=== PATIENT | female | born 1995 | race Caucasian/White ===

== ENCOUNTER 2016-03-27 20:26 | Emergency (ER) | payer OTHER, MEDICAID ==
[2016-03-27 20:57] VITALS: TEMP 98.8; BMI 21.7
[2016-03-27] MEDS ORDERED: NS 1,000 ML IV ONE (21:12)
--- NOTE | 2016-03-27 21:16 | EDPRACDOC ---
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 SHE HAD BEEN HAVING SOME BROWNISH D/C, BUT SHE'S HAD BRIGHT RED BLOOD FOR THE PAST 2 DAYS. PT ALSO HAS LOWER ABD PAIN. Description: Reports: Spontaneous Location: Reports: Internal Vagina Relevant History: Reports: Currently : 3 Para: 1 Total Number of Abortions: 1 (D&C 12/27) Control Method: Reports: None Blood Type: A+ Pain Severity: Mild Vaginal Bleeding Description: Reports: Bright Red ED Past Medical History - Patient Medical History GI/ History: Reports: Urinary Tract Infection, Gastroesophageal Reflux Psychological History: Reports: Anxiety. Denies: Depression Systemic History: Surgical History: Reports: Other (D&C). Denies: Hysterectomy - Family Medical History Reports: Hypertension (PATERNAL FAMILY). Denies: Diabetes, Cancer, Stroke, Cardiac Disorders - Social Medical History Smoking Status: Never smoker Social History: Denies: Amphetamine Use, Barbiturate Use, Benzodiazipine Use, Cocaine Use, Marijuana Use ETOH: None Substance Abuse: None Lives With: Spouse Lives In: Home EDM Review of Systems - Review of Systems ROS Negative Except as Marked: Yes All systems reviewed and were negative except as marked Gastrointestinal: Pain Genitourinary: Vaginal Bleeding - Physical Exam Constitutional: Alert (Awake), No apparent distress Oriented to: Time, Person, Place Last recorded Vital Signs: Last Vital Signs Temp 98.8 F 03/27/16 20:53 Pulse 87 03/27/16 20:53 Resp 18 03/27/16 20:53 BP 125/87 03/27/16 20:53 Pulse Ox 99 03/27/16 20:53 Oxygen Pulse Oxygen Saturation 99 O2 Device Room Air Oxygen Flow Rate Fraction of Inspired Oxygen ( FIO2) - HEENT Head: Normal ( normocephalic) Eye Exam: Normal (PERRL, EOMI, Sclera white) Oropharynx: Normal (Pharynx:Moist without exudate,Gums-no swelling) ENT EAC: Normal TMJ: Normal Nose: No Symptoms Reported (septum midline) Neck: Normal (FROM, trachea at midline) - Respiratory/Cardiovascular Respiratory: Normal - CTA (BBS clear to auscultation without adventitious sounds ) Cardiovascular: Normal (RRR without murmur, gallop or rub) - GI Auscultation: Normal (NABS) Palpation: Normal (Soft,No rebound or guarding, non distended) Tenderness: Mild, Suprapubic Perry's Sign: Negative - Bladder: Normal External: Normal Vagina: Blood Cervix: Blood Uterus: Normal size Adnexa: Bilateral: Normal - Musculoskeletal Back: Normal (Non-Tender) Extremities: Normal (Normal tone, Pulses 2+ No cyanosis or edema, FROM) - Integumentary Skin: Normal, Warm, Dry Lymphatics: Normal (no adenopathy) - Neurologic Memory Impaired: Normal Motor Function: Normal (Normal tone, Pulses 2+ No cyanosis or edema, FROM) Cranial Nerve: Normal (CN II-X11 intact sensation, strength 5/5) Cerebellar: Normal Mood Description: Normal Thought: Coherent Perception: Normal - Results 03/27/16 21:34 03/27/16 21:34 Decision Time to Discharge: 22:45 - Departure Yes I personally saw and evaluated the patient. Disposition: Home Condition: Fair Final Diagnosis: Spontaneous Instructions: Miscarriage (ED) Education/Counseling Given To: Patient, Family Member Education/Counseling Given Regarding: Diagnosis, Treatment, Follow Up Referrals: Oriana Rangel NP [Primary Care Provider] - One Week Gabi Sanchez DO [Staff Physician] - One Week
[2016-03-27 22:02] LABS: BLOOD UREA NITROGEN 18 MG/DL (7-17); CALCIUM 9.6 MG/DL (8.4-10.2); CALCULATED OSMOLALITY 273 MOs/Kg (270-290); CHLORIDE 105 mEq/L (98-107); GLUCOSE 96 MG/DL (70-99); SODIUM LEVEL 141 mEq/L (137-146); TOTAL PROTEIN 7.7 G/DL (6.3-8.2)
[2016-03-27 22:06] LABS: AUTOMATED BASOPHIL 0.5 % (0-2); AUTOMATED EOSINOPHIL 1.3 % (0-5); AUTOMATED LYMPH 55.4 % (17-44); AUTOMATED MONOCYTE 6.8 % (3-10); MPV 8.8 fL (7.4-10.4)
[2016-03-27 22:18] LABS: QUANTITATIVE SERUM HCG 125.1 mIU/mL (<5)
[2016-03-27 22:41] LABS: LEUKOCYTES/URINE NEG (NEGATIVE); NITRITE/URINE NEG (NEGATIVE); RBC/URINE 0-2 (0-5); URINE OCCULT BLOOD NEG (NEG/TRACE); WBC/URINE 0-2 (0-5)
[2016-03-27 23:07] VITALS: BP 120/80; PULSE 82
[2016-03-30 05:38] LABS: CHLAMY BY NUCLEIC ACID AMP Negative (Negative)
[2016-03-30 07:16] LABS: GC BY NUCLEIC ACID AMP Negative (Negative)
== END 2016-03-27 23:09 | disposition home or self-care (01) ==
LOC: ED 20:26
DX: O03.9 Complete or unspecified spontaneous abortion without complication (principal)
CPT/HCPCS: 36415; 80053; 81001; 84702; 85025; 87210; 87220; 87491; 87591; 96360; 99284

== ENCOUNTER 2016-04-07 21:00 | Emergency (ER) | payer OTHER, MEDICAID ==
[2016-04-07 21:11] VITALS: TEMP 98.6; BMI 33.3
--- NOTE | 2016-04-07 22:24 | EDPRACDOC ---
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 PT STATES THAT SHE WAS SEEN HERE 11 DAYS AGO AND WAS TOLD THAT SHE HAD MISCARRIED THE BABY. PT STATES THAT SHE FOLLOWED UP WITH HER HOOP BENDING MACHINE OPERATOR 2 DAYS AGO AND HAD HER BLOOD WORK REPEATED AND IN FACT, HER LEVELS WERE ELEVATED. PT STATES THAT SHE CONTINUES TO BLEED. DENIES PAIN/FEVER. PT STATES THAT SHE GOT THE CALL BACK ABOUT HER BLOOD WORK TODAY AND HER CREDIT RELATIONSHIP MANAGER TOLD HER TO COME TO THE ED TO HAVE AN U/S BECAUSE SHE HAS A ROOT CANAL SCHEDULED TOMORROW AND SHE DOESN'T WANT TO DO THIS IF SHE IS INDEED . Description: Reports: Spontaneous Location: Reports: Internal Vagina Relevant History: Reports: Currently Control Method: Reports: None Pain Severity: None Vaginal Bleeding Description: Reports: Bright Red Associated Signs & Symptoms: Reports: Vaginal Bleeding ED Past Medical History - History Reviewed Yes Nurses notes reviewed and agree except as marked - Patient Medical History GI/ History: Reports: Urinary Tract Infection, Gastroesophageal Reflux Psychological History: Reports: Anxiety. Denies: Depression Systemic History: Denies: Cancer Surgical History: Reports: Other (D&C). Denies: Hysterectomy - Family Medical History Reports: Hypertension (PATERNAL FAMILY). Denies: Diabetes, Cancer, Stroke, Cardiac Disorders - Social Medical History Smoking Status: Never smoker Social History: Denies: Amphetamine Use, Barbiturate Use, Benzodiazipine Use, Cocaine Use, Marijuana Use EDM Review of Systems - Review of Systems ROS Negative Except as Marked: Yes All systems reviewed and were negative except as marked Constitutional: No Symptoms Reported Respiratory: No Symptoms Reported Cardiovascular: No Symptoms Reported Gastrointestinal: No Symptoms Reported Genitourinary: Bleeding, Neurological: No Symptoms Reported Musculoskeletal: No Symptoms Reported Integumentary: No Symptoms Reported - Physical Exam Constitutional: Alert (Awake), No apparent distress Oriented to: Time, Person, Place Last recorded Vital Signs: Last Vital Signs Temp 98.6 F 04/07/16 21:08 Pulse 84 04/07/16 22:11 Resp 18 04/07/16 22:11 BP 118/77 04/07/16 22:11 Pulse Ox 96 04/07/16 22:11 Oxygen Pulse Oxygen Saturation 96 O2 Device Room Air Oxygen Flow Rate Fraction of Inspired Oxygen ( FIO2) - HEENT Head: Normal Eye Exam: Normal Neck: Normal, Denies Pain, Midline - Respiratory/Cardiovascular Respiratory: Normal - CTA Cardiovascular: Normal - GI Palpation: Normal Tenderness: Non tender - Musculoskeletal Back: Normal Extremities: Normal - Integumentary Skin: Normal Lymphatics: Normal - Neurologic Cerebellar: Normal Mood Description: Normal Thought: Coherent Perception: Normal Decision Time to Discharge: 22:36 - Departure Disposition: Home Condition: Good Final Diagnosis: Threatened Instructions: Threatened Miscarriage (ED) Education/Counseling Given To: Patient Education/Counseling Given Regarding: Diagnosis, Treatment, Follow Up Referrals: Oriana Rangel NP [Primary Care Provider] - One Week Additional Instructions: CONTINUE PELVIC REST. YOUR BETA QUANT IS NOW 485, BUT IS STILL TOO SMALL TO VISUALIZE ON ULTRASOUND AT THIS TIME. CONTINUE FOLLOW UP WITH HOOP BENDING MACHINE OPERATOR.
[2016-04-07 22:44] VITALS: BP 114/72; PULSE 78
== END 2016-04-07 22:43 | disposition home or self-care (01) ==
LOC: ED 21:00 → EDMC 22:43
DX: O20.0 Threatened abortion (principal); Z3A.00 Weeks of gestation of pregnancy not specified
CPT/HCPCS: 36415; 84702; 99283

== ENCOUNTER 2016-04-12 16:39 | Emergency (ER) | payer OTHER, MEDICAID ==
[2016-04-12 16:50] VITALS: TEMP 98.9; BMI 21.3
[2016-04-12 17:10] LABS: AUTOMATED BASOPHIL 0.4 % (0-2); AUTOMATED EOSINOPHIL 0.3 % (0-5); AUTOMATED NEUTROPHIL 66.3 % (45-76); MPV 8.1 fL (7.4-10.4)
[2016-04-12 17:29] LABS: BLOOD UREA NITROGEN 12 MG/DL (7-17); CALCIUM 9.7 MG/DL (8.4-10.2); CALCULATED OSMOLALITY 273 MOs/Kg (270-290); CHLORIDE 105 mEq/L (98-107); GLUCOSE 94 MG/DL (70-99); SODIUM LEVEL 142 mEq/L (137-146); TOTAL PROTEIN 7.5 G/DL (6.3-8.2)
[2016-04-12 17:31] LABS: LEUKOCYTES/URINE NEG (NEGATIVE); NITRITE/URINE NEG (NEGATIVE); URINE OCCULT BLOOD NEG (NEG/TRACE)
--- NOTE | 2016-04-12 19:09 | DIRPT ---
CLINICAL DATA: patient with right lower quadrant pain and vaginal bleeding. Beta HCG 632. EXAM: OBSTETRIC <14 WK US AND TRANSVAGINAL OB US TECHNIQUE: Both transabdominal and transvaginal ultrasound examinations were performed for complete evaluation of the gestation as well as the maternal uterus, adnexal regions, and pelvic cul-de-sac. Transvaginal technique was performed to assess early . COMPARISON: None. FINDINGS: Intrauterine gestational sac: Not present. Yolk sac: Not present. Embryo: Not present. Subchorionic hemorrhage: Not applicable. Maternal uterus/adnexae: Uterus measures 7.1 x 3.6 x 4.7 cm. Endometrium measures 7 mm. The right ovary measures 3.4 x 2.0 x 2.0 cm. Adjacent to the right ovary is a questionable hypoechoic structure measuring 1.4 x 1.1 cm. Left ovary measures 2.8 x 2.1 x 2.0 cm contains physiologic follicles. There is no pelvic free fluid. IMPRESSION: 1. No intrauterine . 2. Questionable hypoechoic right adnexal structure measuring 1.4 cm. Per technologist note, patient was tender during scanning of this region. Findings are concerning for right adnexal ectopic . Critical Value/emergent results were called by telephone at the time of interpretation on 04/12/2016 at 7:[address] ASAD THAKKAR DO, who verbally acknowledged these results. Electronically Signed By: Yareli Morales M.D. On: 04/12/2016 19:06
--- NOTE | 2016-04-12 19:13 | EDPRACDOC ---
- General Information Chief Complaint: Abdominal Pain Stated Complaint: ECTOPIC - SENT BY OBGYN Time Seen by Provider: 04/12/16 18:23 Information Source: Patient, Family Mode Of Arrival: Car Home Medications: Home Medications Oxycodone HCl/Acetaminophen [Percocet 5-325 mg Tablet] 1 - 2 tab PO Q6H PRN Penicillin V Potassium 500 mg PO .QID X 10D 04/12/16 Allergies/Adverse Reactions: Allergies Allergy/AdvReac Type Severity Reaction Status Date / Time hydrocodone Allergy Itching Verified 04/12/16 16:44 Latex, Natural Rubber Allergy Itching Verified 04/12/16 16:44 - History of Present Illness Onset: this am HPI: PT PRESENTS WITH RLQ PAIN. SENT FROM OBGYN WITH CONCERN FOR ECTOPIC . 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 Denies: Depression Systemic History: Denies: Cancer Surgical History: Reports: Other (D&C). Denies: Hysterectomy - Family Medical History Reports: Hypertension (PATERNAL FAMILY). Denies: Diabetes, Cancer, Stroke, Cardiac Disorders - Social Medical History Smoking Status: Never smoker Social History: Denies: Amphetamine Use, Barbiturate Use, Benzodiazipine Use, Cocaine Use, Marijuana Use Lives In: Home EDM Review of Systems - Review of Systems Gastrointestinal: Pain (RLQ) - Physical Exam Constitutional: Alert Oriented to: Time, Person, Place Last recorded Vital Signs: Last Vital Signs Temp 98.9 F 04/12/16 16:44 Pulse 107 04/12/16 18:55 Resp 20 04/12/16 18:55 BP 128/66 04/12/16 18:55 Pulse Ox 100 04/12/16 18:55 Oxygen Pulse Oxygen Saturation 100 O2 Device Room Air Oxygen Flow Rate Fraction of Inspired Oxygen ( FIO2) - HEENT Head: negative: Deformity, Laceration Oropharynx: Other (DENTAL SWELLING FROM PROCEDURE EARLIER TODAY.) Nose: negative: Congestion, Discharge - Neurologic Memory Impaired: Normal Motor Function: Normal Mood Description: Anxious, Appropriate Thought: Coherent Perception: Normal - Re-evaluation Re-evaluation 1 Re-evaluation Time: 19:[address] PAGE. HE WILL COME TO ER TO SPEAK WITH PATIENT. - Results 04/12/16 16:50 04/12/16 16:50 WBC 9.0 xk/uL (3.8-10.8) 04/12/16 16:50 RBC 4.36 xM/uL (4.20-5.40) 04/12/16 16:50 Hgb 12.8 g/dL (12.0-16.0) 04/12/16 16:50 Hct 38.0 % (36-47) 04/12/16 16:50 MCV 87 fL (81-99) 04/12/16 16:50 MCH 29.4 pg (27-32) 04/12/16 16:50 MCHC 33.7 g/dl (33-36) 04/12/16 16:50 RDW 13.9 % (11.5-14.5) 04/12/16 16:50 Plt Count 315 xk/uL (130-400) 04/12/16 16:50 MPV 8.1 fL (7.4-10.4) 04/12/16 16:50 Neut % (Auto) 66.3 % (45-76) 04/12/16 16:50 Lymph % (Auto) 28.0 % (17-44) 04/12/16 16:50 [place] % (Auto) 5.0 % (3-10) 04/12/16 16:50 Eos % (Auto) 0.3 % (0-5) 04/12/16 16:50 Baso % (Auto) 0.4 % (0-2) 04/12/16 16:50 Absolute Neuts (auto) 5.94 xk/uL (1.7-8.2) 04/12/16 16:50 Absolute Lymphs (auto) 2.52 xk/uL (0.65-4.75) 04/12/16 16:50 Sodium 142 mEq/L (137-146) 04/12/16 16:50 Potassium 4.4 mEq/L (3.5-5.1) 04/12/16 16:50 Chloride 105 mEq/L (98-107) 04/12/16 16:50 Carbon Dioxide 27 mMOL/L (22-33) 04/12/16 16:50 Anion Gap 14 mEq/L (8-16) 04/12/16 16:50 BUN 12 MG/DL (7-17) 04/12/16 16:50 Creatinine 0.60 MG/DL (0.52-1.04) 04/12/16 16:50 Estimated GFR (MDRD) > 60 mL/min (>=60) 04/12/16 16:50 Glucose 94 MG/DL (70-99) 04/12/16 16:50 Calculated Osmolality 273 MOs/Kg (270-290) 04/12/16 16:50 Calcium 9.7 MG/DL (8.4-10.2) 04/12/16 16:50 Total Bilirubin 1.7 MG/DL (0.2-1.3) H 04/12/16 16:50 AST 16 IU/L (14-36) 04/12/16 16:50 ALT 38 IU/L (9-52) 04/12/16 16:50 Alkaline Phosphatase 75 IU/L (38-126) 04/12/16 16:50 Total Protein 7.5 G/DL (6.3-8.2) 04/12/16 16:50 Albumin 4.5 G/DL (3.5-5.0) 04/12/16 16:50 Beta HCG, Quant 632.0 mIU/mL (<5) 04/12/16 16:50 Urine Color Yellow 04/12/16 16:53 Urine Clarity Cldy 04/12/16 16:53 Urine pH 6.0 (5.0-8.0) 04/12/16 16:53 Ur Specific [place] 1.035 (1.003-1.035) 04/12/16 16:53 Urine Protein Trace (NEG/TRACE) 04/12/16 16:53 Urine Glucose (UA) Neg (NEGATIVE) 04/12/16 16:53 Urine Ketones Neg (NEGATIVE) 04/12/16 16:53 Urine Occult Blood Neg (NEG/TRACE) 04/12/16 16:53 Urine Nitrite Neg (NEGATIVE) 04/12/16 16:53 Urine Bilirubin Neg (NEGATIVE) 04/12/16 16:53 Urine Urobilinogen 0.2 MG/DL (0-1) 04/12/16 16:53 Ur Leukocyte Esterase Neg (NEGATIVE) 04/12/16 16:53 Urine RBC 2-5 (0-5) 04/12/16 16:53 Urine WBC 2-5 (0-5) 04/12/16 16:53 Ur Epithelial Cells 3+ 04/12/16 16:53 Urine Bacteria Few (NEG/FEW) 04/12/16 16:53 Urine Mucus Large (NEG/OCC) 04/12/16 16:53 Lab Results 04/12/16 04/12/16 04/12/16 16:53 16:50 16:50 WBC 9.0 RBC 4.36 Hgb 12.8 Hct 38.0 MCV 87 MCH 29.4 MCHC 33.7 RDW 13.9 Plt Count 315 MPV 8.1 Neut % (Auto) 66.3 Lymph % (Auto) 28.0 [place] % (Auto) 5.0 Eos % (Auto) 0.3 Baso % (Auto) 0.4 Absolute Neuts (auto) 5.94 Absolute Lymphs (auto) 2.52 Sodium 142 Potassium 4.4 Chloride 105 Carbon Dioxide 27 Anion Gap 14 BUN 12 Creatinine 0.60 Estimated GFR (MDRD) > 60 Glucose 94 Calculated Osmolality 273 Calcium 9.7 Total Bilirubin 1.7 H AST 16 ALT 38 Alkaline Phosphatase 75 Total Protein 7.5 Albumin 4.5 Beta HCG, Quant 632.0 Urine Color Yellow Urine Clarity Cldy Urine pH 6.0 Ur Specific [place] 1.035 Urine Protein Trace Urine Glucose (UA) Neg Urine Ketones Neg Urine Occult Blood Neg Urine Nitrite Neg Urine Bilirubin Neg Urine Urobilinogen 0.2 Ur Leukocyte Esterase Neg Urine RBC 2-5 Urine WBC 2-5 Ur Epithelial Cells 3+ Urine Bacteria Few Urine Mucus Large Decision Time to Discharge: 22:07 - Departure Yes I personally saw and evaluated the patient. Disposition: Home Condition: Stable Final Diagnosis: Ectopic Qualifiers: Location of ectopic : tubal Instructions: Ectopic (ED) Education/Counseling Given To: Patient, Family Member Education/Counseling Given Regarding: Diagnosis, Treatment, Prognosis, Follow Up Referrals: Oriana Rangel NP [Primary Care Provider] - As Needed Danie Page MD [Staff Physician] - Call for Appointment Prescriptions: No Action Penicillin V Potassium 500 mg PO .QID X 10D Oxycodone HCl/Acetaminophen [Percocet 5-325 mg Tablet] 1 - 2 tab PO Q6H PRN PRN Reason: Pain Additional Instructions: MAKE SURE TO FOLLOW UP WITH THE OBGYN FOR REPEAT LAB WORK ON TUESDAY.
[2016-04-12] MEDS ORDERED: METHOTREXATE SODIUM 50 MG/2 ML VIAL IM ONE (20:55)
--- NOTE | 2016-04-12 21:07 | HISTPHYS ---
- HISTORY OF PRESENT ILLNESS Age: 20 : 3 Para: 1 Patient Presents to:: Emergency Department Presents for:: Abdominal Pain, Vaginal Bleeding Details: Pt sent from the office for inappropriately rising HCG levels. - REVIEW OF SYSTEMS Reports/Denies: Reports: Vaginal Bleeding (light to moderate x 4 days), Other ( RLQ pain ) Pain: Reports: Abdominal (RLQ mild to moderate, intermittant and sharp) - ALLERGIES Allergies Allergy/AdvReac Type Severity Reaction Status Date / Time hydrocodone Allergy Itching Verified 04/12/16 16:44 Latex, Natural Rubber Allergy Itching Verified 04/12/16 16:44 - CURRENT MEDICATIONS Home Medication List Oxycodone HCl/Acetaminophen [Percocet 5-325 mg Tablet] 1 - 2 tab PO Q6H PRN [History] Penicillin V Potassium 500 mg PO .QID X 10D 04/12/16 [History] - PAST MEDICAL HISTORY Reports: No Significant History - PAST SURGICAL HISTORY Reports: Section, Dilation & Curettage - FAMILY HISTORY Family History: Noncontributory - SOCIAL HISTORY Travel Outside of [place] in the Last 3 Months?: No Smoking Status: Never smoker Social History: Denies: Amphetamine Use, Barbiturate Use, Benzodiazipine Use, Cocaine Use, Marijuana Use Marital Status: Single (Never ) - GENITOURINARY HISTORY HX : 3 Para: 1 Term: 1 Pre-term: 0 Elective Abortions: 0 Spontaneous Abortions: 1 - PHYSICAL EXAM Vital Signs:: Temperature: 98.9 F (04/12/16 16:44) HR: 107 (04/12/16 18:55) RR: 20 (04/12/16 18:55) BP: 128/66 (04/12/16 18:55) Pulse Ox: 100 (04/12/16 18:55) GENERAL: Alert, Oriented, No Acute Distress ABDOMEN: Soft, Tender (in the RLQ on deep palpation). negative: Guarding, Rebound Tenderness GENITOURINARY: Other (Pelvic exam deferred. ) MUSCULOSKELETAL: Normal. negative: Atrophy EXTERMITIES: Moves All Extremeties. negative: Pain/Tenderness Laboratory Last Values WBC 9.0 xk/uL (3.8-10.8) 04/12/16 16:50 RBC 4.36 xM/uL (4.20-5.40) 04/12/16 16:50 Hgb 12.8 g/dL (12.0-16.0) 04/12/16 16:50 Hct 38.0 % (36-47) 04/12/16 16:50 MCV 87 fL (81-99) 04/12/16 16:50 MCH 29.4 pg (27-32) 04/12/16 16:50 MCHC 33.7 g/dl (33-36) 04/12/16 16:50 RDW 13.9 % (11.5-14.5) 04/12/16 16:50 Plt Count 315 xk/uL (130-400) 04/12/16 16:50 MPV 8.1 fL (7.4-10.4) 04/12/16 16:50 Neut % (Auto) 66.3 % (45-76) 04/12/16 16:50 Lymph % (Auto) 28.0 % (17-44) 04/12/16 16:50 [place] % (Auto) 5.0 % (3-10) 04/12/16 16:50 Eos % (Auto) 0.3 % (0-5) 04/12/16 16:50 Baso % (Auto) 0.4 % (0-2) 04/12/16 16:50 Absolute Neuts (auto) 5.94 xk/uL (1.7-8.2) 04/12/16 16:50 Absolute Lymphs (auto) 2.52 xk/uL (0.65-4.75) 04/12/16 16:50 Sodium 142 mEq/L (137-146) 04/12/16 16:50 Potassium 4.4 mEq/L (3.5-5.1) 04/12/16 16:50 Chloride 105 mEq/L (98-107) 04/12/16 16:50 Carbon Dioxide 27 mMOL/L (22-33) 04/12/16 16:50 Anion Gap 14 mEq/L (8-16) 04/12/16 16:50 BUN 12 MG/DL (7-17) 04/12/16 16:50 Creatinine 0.60 MG/DL (0.52-1.04) 04/12/16 16:50 Estimated GFR (MDRD) > 60 mL/min (>=60) 04/12/16 16:50 Glucose 94 MG/DL (70-99) 04/12/16 16:50 Calculated Osmolality 273 MOs/Kg (270-290) 04/12/16 16:50 Calcium 9.7 MG/DL (8.4-10.2) 04/12/16 16:50 Total Bilirubin 1.7 MG/DL (0.2-1.3) H 04/12/16 16:50 AST 16 IU/L (14-36) 04/12/16 16:50 ALT 38 IU/L (9-52) 04/12/16 16:50 Alkaline Phosphatase 75 IU/L (38-126) 04/12/16 16:50 Total Protein 7.5 G/DL (6.3-8.2) 04/12/16 16:50 Albumin 4.5 G/DL (3.5-5.0) 04/12/16 16:50 Beta HCG, Quant 632.0 mIU/mL (<5) 04/12/16 16:50 Urine Color Yellow 04/12/16 16:53 Urine Clarity Cldy 04/12/16 16:53 Urine pH 6.0 (5.0-8.0) 04/12/16 16:53 Ur Specific [place] 1.035 (1.003-1.035) 04/12/16 16:53 Urine Protein Trace (NEG/TRACE) 04/12/16 16:53 Urine Glucose (UA) Neg (NEGATIVE) 04/12/16 16:53 Urine Ketones Neg (NEGATIVE) 04/12/16 16:53 Urine Occult Blood Neg (NEG/TRACE) 04/12/16 16:53 Urine Nitrite Neg (NEGATIVE) 04/12/16 16:53 Urine Bilirubin Neg (NEGATIVE) 04/12/16 16:53 Urine Urobilinogen 0.2 MG/DL (0-1) 04/12/16 16:53 Ur Leukocyte Esterase Neg (NEGATIVE) 04/12/16 16:53 Urine RBC 2-5 (0-5) 04/12/16 16:53 Urine WBC 2-5 (0-5) 04/12/16 16:53 Ur Epithelial Cells 3+ 04/12/16 16:53 Urine Bacteria Few (NEG/FEW) 04/12/16 16:53 Urine Mucus Large (NEG/OCC) 01/30/17 16:53 Exam(s): [id number] US/US OB <14 WEEKS - US OB TV CLINICAL DATA: patient with right lower quadrant pain and vaginal bleeding. Beta HCG 632. EXAM: OBSTETRIC <14 WK US AND TRANSVAGINAL OB US TECHNIQUE: Both transabdominal and transvaginal ultrasound examinations were performed for complete evaluation of the gestation as well as the maternal uterus, adnexal regions, and pelvic cul-de-sac. Transvaginal technique was performed to assess early . COMPARISON: None. FINDINGS: Intrauterine gestational sac: Not present. Yolk sac: Not present. Embryo: Not present. Subchorionic hemorrhage: Not applicable. Maternal uterus/adnexae: Uterus measures 7.1 x 3.6 x 4.7 cm. Endometrium measures 7 mm. The right ovary measures 3.4 x 2.0 x 2.0 cm. Adjacent to the right ovary is a questionable hypoechoic structure measuring 1.4 x 1.1 cm. Left ovary measures 2.8 x 2.1 x 2.0 cm contains physiologic follicles. There is no pelvic free fluid. IMPRESSION: 1. No intrauterine . 2. Questionable hypoechoic right adnexal structure measuring 1.4 cm. Per technologist note, patient was tender during scanning of this region. Findings are concerning for right adnexal ectopic . Critical Value/emergent results were called by telephone at the time of interpretation on 04/12/2016 at 7:[address] ASAD THAKKAR DO, who verbally acknowledged these results. - PLAN Other Plan: Pt and her mother counseled on the HCG levels and u/s results and told that she appears to have an ectopic . We have discussed surgery vs medical therapy as well as expectant management. She would like to proceed with Methotrexate this evening. Told of the risk of tubal rupture even with treatment and instructed to return to the ER immediately for worsening pain, dizzyness or syncopal episode. Will repeat HCG on (day 4).
[2016-04-12 22:19] VITALS: BP 133/64; PULSE 100
== END 2016-04-12 22:20 | disposition home or self-care (01) ==
LOC: ED 16:39
DX: O00.90 Unspecified ectopic pregnancy without intrauterine pregnancy (principal)
CPT/HCPCS: 36415; 76801; 76817; 80053; 81001; 84702; 85025; 96372; 99283; J9260